=== PATIENT | male | born 1990 ===

== ENCOUNTER 2020-10-22 13:35 | Outpatient (CLI) | payer OTHER | END 2020-10-22 13:49 | disposition home or self-care (01) | LOC: RAD 13:35 | PROVIDERS: ATTEND Orthopaedic Surgery | DX: M25.562 Pain in left knee (principal) ==

== ENCOUNTER 2021-04-09 10:28 | Outpatient (CLI) | payer OTHER | END 2021-04-09 10:41 | disposition home or self-care (01) | LOC: RAD 10:28 | PROVIDERS: ATTEND Orthopaedic Surgery | DX: I10 Essential (primary) hypertension (principal); Z76.89 Persons encountering health services in other specified circumstances ==

== ENCOUNTER → 2021-04-09 | Outpatient (CLI) | payer OTHER | END | disposition home or self-care (01) | LOC: LAB 11:24 | PROVIDERS: ATTEND Orthopaedic Surgery | DX: D64.89 Other specified anemias (principal); E88.89 Other specified metabolic disorders; D68.8 Other specified coagulation defects; N39.0 Urinary tract infection, site not specified; Z22.322 Carrier or suspected carrier of Methicillin resistant Staphylococcus aureus; E13.69 Other specified diabetes mellitus with other specified complication; I49.8 Other specified cardiac arrhythmias; I10 Essential (primary) hypertension ==

== ENCOUNTER 2021-04-19 05:42 | Day surgery (SDC) | payer OTHER | END 2021-04-19 14:55 | disposition home or self-care (01) | LOC: CIR.AMB 05:42 | PROVIDERS: ATTEND Orthopaedic Surgery | DX: S83.232A Complex tear of medial meniscus, current injury, left knee, initial encounter (principal); M65.862 Other synovitis and tenosynovitis, left lower leg; Z20.822 Contact with and (suspected) exposure to COVID-19 ==

== ENCOUNTER 2021-11-11 09:27 | Outpatient (CLI) | payer OTHER | END 2021-11-11 09:32 | disposition home or self-care (01) | LOC: LAB 09:27 | PROVIDERS: ATTEND Orthopaedic Surgery | DX: E55.9 Vitamin D deficiency, unspecified (principal); M85.9 Disorder of bone density and structure, unspecified; E56.1 Deficiency of vitamin K ==

== ENCOUNTER 2024-10-31 11:18 | Outpatient (CLI) | payer OTHER | END 2024-10-31 11:25 | disposition home or self-care (01) | LOC: RAD 11:18 | PROVIDERS: ATTEND Orthopaedic Surgery | DX: M25.562 Pain in left knee (principal); M54.50 Low back pain, unspecified ==

== ENCOUNTER 2024-11-13 09:55 | Outpatient (CLI) | payer OTHER ==
[2024-11-13 11:08] LABS: INR 0.98; PARTIAL THROMBOPLASTIN TIME 26.6 SECONDS (22.0-34.0); PROTHROMBIN TIME 10.7 SECONDS (9.0-11.5)
== END 2024-11-13 10:01 | disposition home or self-care (01) ==
LOC: LAB 09:55
PROVIDERS: ATTEND Otolaryngology
DX: R04.0 Epistaxis (principal)

== ENCOUNTER 2024-11-26 10:51 | Outpatient (CLI) | payer OTHER ==
[2024-11-26 12:40] LABS: COL EPI 81 SECONDS (82-175)
== END 2024-11-26 10:58 | disposition home or self-care (01) ==
LOC: LAB 10:51
PROVIDERS: ATTEND Otolaryngology
DX: R04.0 Epistaxis (principal)

== ENCOUNTER 2024-11-29 12:02 | Outpatient (CLI) | payer OTHER | END 2024-11-29 12:03 | disposition home or self-care (01) | LOC: RAD 12:02 | DX: M54.51 Vertebrogenic low back pain (principal) ==

== ENCOUNTER 2025-05-14 11:45 | Outpatient (CLI) | payer OTHER | END 2025-05-14 12:01 | disposition home or self-care (01) | LOC: RAD 11:45 | PROVIDERS: ATTEND Orthopaedic Surgery | DX: M25.532 Pain in left wrist (principal) ==